=== PATIENT | male | born 1955 | race Caucasian/White ===

== ENCOUNTER 2022-11-21 11:59 | Emergency (ER) | payer OTHER, SELFPAY ==
[~2022-11-21 11:59] MED LIST: Iopamidol-370 76% 500 ML MDV (1 ML CHARGE) ONE
[2022-11-21 12:57] LABS: #Eosinphils 0.1 thou/uL (0.0-0.7); #Monocytes 1.1 thou/uL (0.11-0.59); #Neutrophils 8.5 thou/uL (1.40-6.50); %Basophils 0.3 % (0.0-1.0); %Eosinophils 0.5 % (0.0-10.0); %Lymphocytes 9.8 % (21.0-51.0); %Monocytes 10.2 % (0.0-10.0); %Neutrophils 78.8 % (42.0-75.0); Hematocrit 48.4 % (42.0-52.0); Mean Corpuscular HGB CONC 33.1 g/dL (32.0-36.0); Mean Corpuscular Hemoglobin 29.4 pg (27.0-31.0); Mean Platelet Volume 10.6 fL (7.4-10.4); Platelet Count 254 10x3/uL (130-400); RBC Distribution Width 14.3 % (11.5-14.5); Red Blood Cell (RBC) Count 5.44 mill/uL (4.70-6.10); White Blood Cell (WBC) Count 10.7 10x3/uL (4.8-10.8)
[2022-11-21 14:24] LABS: Troponin I 0.027 ng/mL (< 0.028)
[2022-11-21 14:32] LABS: ALT (SGPT) 34 U/L (8-55); AST (SGOT) 41 U/L (5-34); Albumin 4.7 g/dL (3.4-4.8); Alkaline Phosphatase 112 U/L (40-110); Anion Gap 18 mmol/L (10-20); BUN (Urea Nitrogen) 23 mg/dL (8.4-25.7); Bilirubin, Total 2.3 mg/dL (0.2-1.2); Calc. Creatinine Clearance 0 mL/min (70-130); Calcium 9.8 mg/dL (7.8-10.44); Carbon Dioxide 22 mmol/L (23-31); Chloride 102 mmol/L (98-107); Estimated GFR 46; Globulin 3.8 g/dL (2.4-3.5); Glucose 127 mg/dL (80-115); Potassium 4.1 mmol/L (3.5-5.1); Protein, Total 8.5 g/dL (5.8-8.1); Sodium 138 mmol/L (136-145)
== END 2022-11-21 16:01 | disposition home or self-care (01) ==
LOC: ERS 11:59
DX: S22.21XA Fracture of manubrium, initial encounter for closed fracture (principal); S22.41XA Multiple fractures of ribs, right side, initial encounter for closed fracture; V48.4XXA Person boarding or alighting a car injured in noncollision transport accident, initial encounter
CPT/HCPCS: 70450; 71045; 71260; 72125; 80053; 84484; 85025; 93005; Q9967